=== PATIENT | male | born 1970 | race Caucasian/White ===

== ENCOUNTER 2017-02-11 21:31 | Emergency (ER) | payer OTHER ==
[2017-02-11 21:55] VITALS: BP 140/89; PULSE 80; RESP 16; TEMP 99; O2SAT 96
[2017-02-11] MEDS ORDERED: TDAP ADULT 0.5 ML INJ (BOOSTRIX) IM ONE (21:56)
--- NOTE | 2017-02-11 22:30 | EDPHY ---
H & P Time Seen by Provider: 02/11/17 21:41 HPI/ROS: CHIEF COMPLAINT: Left index finger laceration HISTORY OF PRESENT ILLNESS: 46-year-old male slicing a Lyme when he sliced the radial aspect of the left index finger at the tip. This occurred 2 o'clock in the afternoon. Patient has been unable to control the bleeding himself. No other injuries. He is not on any anticoagulants. Does not take aspirin. REVIEW OF SYSTEMS: Aside from elements discussed in the HPI, a comprehensive 10-point review of systems was reviewed and is negative. PAST MEDICAL HISTORY: Patient denies. SOCIAL HISTORY: 1 alcoholic beverage today. GENERAL APPEARANCE: Pleasant, no acute distress. FOCUSED EXAM OF left index finger: Patient has an avulsion type laceration to the radial aspect of the left index finger involving the distal nail and nail bed. There is brisk bleeding from the area of the nail that along the medial aspect. No suturable laceration. Germinal matrix is not injured. Smoking Status: Never smoked Constitutional: Initial Vital Signs Temperature (C) 37.2 C 02/11/17 21:51 Heart Rate 80 02/11/17 21:51 Respiratory Rate 16 02/11/17 21:51 Blood Pressure 140/89 H 02/11/17 21:51 O2 Sat (%) 96 02/11/17 21:51 O2 Delivery Mode Room Air Allergies/Adverse Reactions: ibuprofen Allergy (Mild, Verified 02/11/17 21:50) Other-Enter Comments Home Medications: Medication Instructions Recorded NK [No Known Home Meds] 02/11/17 MDM/Departure - MDM Medications Given: Discontinued Medications Diphtheria/Tetanus/Acell Pertussis (Boostrix) 0.5 ml IM .ONCE ONE Stop: 02/11/17 21:57 Last Admin: 02/11/17 22:40 Dose: Not Given ED Course/Re-evaluation: Surgicel was placed on a nail bed and a dressing was applied. Patient was reexamined after 15-20 minutes. When the Surgicel was removed very remains the area significant bleeding. At this point the nail bed and avulsion was dressed with Surgicel powder followed by Surgicel matrix. Tube gauze dressing was then applied. Bleeding was controlled with this dressing. Patient will leave the dressing in place for 24-48 hours. He is aware that when he removed the dressing especially when he removes the Surgicel matrix the area may begin to bleed again. He is comfortable with this plan. Please see the discharge instructions. Differential Diagnosis: Differential diagnosis for the patient's injury was considered including but not limited to contusion, abrasion, laceration, nail bed laceration, suturable laceration, avulsion, fracture. - Depart Disposition: Home, Routine, Self-Care Clinical Impression: Avulsion, finger tip Qualifiers: Encounter type: initial encounter Qualified Code(s): S61.209A - Unspecified open wound of unspecified finger without damage to nail, initial encounter Condition: Good Instructions: Skin Avulsion (ED) Additional Instructions: The bleeding of your finger tip which has been difficult to control is coming from an injury to the nail bed. Direct pressure as well as the use of Surgicel and other agents to help encourage clotting will be utilized to control the bleeding. Please keep the dressing in place for 24 hr. After that, you may redress the wound with a Band-Aid. The nail will continue to grow out from the base. Referrals: Alfonso Lopez DO [Primary Care Provider] - As per Instructions
== END 2017-02-11 23:02 | disposition home or self-care (01) ==
LOC: CED 21:31
DX: S61.201A Unspecified open wound of left index finger without damage to nail, initial encounter (principal); W45.8XXA Other foreign body or object entering through skin, initial encounter

== ENCOUNTER 2017-12-23 05:29 | Day surgery (SDC) | payer OTHER ==
[2017-12-23] MEDS ORDERED: ATROPINE SULFATE 1 MG/10 ML SYR IVP ONE (06:06)
[2017-12-23] MEDS ORDERED: fentaNYL 100 MCG/2 ML INJ IVP ONE (06:06)
[2017-12-23] MEDS ORDERED: MIDAZOLAM 2 MG/2 ML VIAL IVP ONE (06:06)
[2017-12-23] MEDS ORDERED: NS 500 ML IV ONE (06:06)
[2017-12-23 06:43] LABS: INR 1.47 (0.83-1.16)
--- NOTE | 2017-12-23 07:29 | PDHPUP ---
History & Physical Update H&P update statement: This history and physical update is based on an assessment of the patient which was completed after admission or registration (within 24 hours), but prior to the surgery/procedure. 47 year old male with PAF. He has been on Xarelto 20 mg daily since Nov 22, 2017 without interruption. Plan for DCCV. H&P update: H&P reviewed & patient examined, no change in patient's condition since H&P completed
--- NOTE | 2017-12-23 07:29 | PDANEPAE ---
ANE Past Medical History - Cardiovascular History Hx Hypertension: No Hx Arrhythmias: Yes Hx Chest Pain: No Hx Coronary Artery / Peripheral Vascular Disease: No Hx CHF / Valvular Disease: No Hx Palpitations: No Cardiovascular History Comment: Atrial flutter - Pulmonary History Hx COPD: No Hx Asthma/Reactive Airway Disease: No Hx Recent Upper Respiratory Infection: No Hx Oxygen in Use at Home: No Hx Sleep Apnea: No - Endocrine History Hx Diabetes: No Hypothyroid: No Hyperthyroid: No Obesity: no ANE Review of Systems Review of Systems: ANE Patient History - Allergies Allergies/Adverse Reactions: ibuprofen Allergy (Mild, Verified 02/11/17 21:50) Other-Enter Comments - Home Medications Home Medications: Lactobacillus Acidophilus [Probiotic] 12/23/17 [Last Taken 12/22/17] Metoprolol Tartrate 12.5 mg PO BID 12/23/17 [Last Taken 12/22/17] Omeprazole 20 mg PO DAILY 12/23/17 [Last Taken 12/22/17] Rivaroxaban [Xarelto] 20 mg PO DAILY 12/23/17 [Last Taken 12/22/17 17:30] - Smoking Hx Smoking Status: Never smoked ANE Labs/Vital Signs - Labs Result Diagrams: 12/23/17 06:20 - Vital Signs Height: 185.42 cm Weight: 90.718 kg ANE Physical Exam - Airway Neck exam: FROM Mallampati Score: Class 1 Mouth exam: normal dental/mouth exam - Pulmonary Pulmonary: no respiratory distress - Cardiovascular Cardiovascular: irregularly irregular - ASA Status ASA Status: II
[2017-12-23] MEDS ORDERED: PROPOFOL 200 MG/20 ML VIAL ONE (07:30)
[2017-12-23] MEDS ORDERED: SUCCINYLCHOLINE CHLORIDE 200 MG/10 ML SYR IVP ONE (07:30)
[2017-12-23] MEDS ORDERED: LIDOCAINE 1% 5 ML SDV ONE (07:30)
--- NOTE | 2017-12-23 07:49 | POSTANESTH ---
Post Anesthetic Evaluation Cardiovascular Status: Normal, Stable Respiratory Status: Normal, Stable Level of Consciousness/Mental Status: Can Participate in Eval Pain Control: Adequate, Prn Tx Ordered Nausea/Vomiting Control: Adequate, Prn Tx Ordered Complications Possibly Related to Anesthesia: None Noted
--- NOTE | 2017-12-23 18:15 | CPR ---
DATE OF PROCEDURE: 12/23/2017 PROCEDURE PERFORMED: Cardioversion. INDICATION FOR PROCEDURE: Atrial fibrillation. SUMMARY: The patient is a pleasant 47-year-old gentleman who according to his Fitbit went into atria l fibrillation on approximately October 27, 2017. He was seen at [facility] by SRIDHAR Pineda. He has been on Xarelto 20 mg once daily since November 22, 2017. He is also on metoprolol tartra te 12.5 mg p.o. b.i.d. He presented today for cardioversion. He states he has been compliant with X arelto and has not missed a single dose since starting last month. PROCEDURE: After consents were obtained for both anesthesia and direct current cardioversion, the sridhar flores was anesthetized with the assistance with Anesthesia with propofol. Once appropriate level of sedation was achieved, the patient underwent a single shock of 200 joules of biphasic synchronized en ergy with return to normal sinus rhythm. The patient tolerated the procedure well. There were no po stoperative complications. At the time of this dictation, he is awake, alert, appropriate, responding to questions. He remains in sinus rhythm at 67 beats per minute. PLAN: 1. Continue Xarelto 20 mg once daily. 2. Continue metoprolol tartrate 12.5 mg p.o. b.i.d. 3. Patient is scheduled to follow up with Alden Cuellar in approximately 2 weeks. /[id number]/MODL
--- NOTE | 2017-12-24 12:27 | CPEKG ---
Test Reason : OPEN Blood Pressure : / mmHG Vent. Rate : 074 BPM Atrial Rate : 109 BPM P-R Int : 146 ms QRS Dur : 095 ms QT Int : 387 ms P-R-T Axes : 000 008 -03 degrees QTc Int : 430 ms Atrial fibrillation Abnormal R-wave progression, early transition Borderline T abnormalities, inferior leads Confirmed by Los Harrison ([id number]) on 12/24/2017 12:26:26 PM Referred By: Confirmed By:Los Harrison
--- NOTE | 2017-12-24 12:28 | CPEKG ---
Test Reason : OPEN Blood Pressure : / mmHG Vent. Rate : 069 BPM Atrial Rate : 069 BPM P-R Int : 182 ms QRS Dur : 098 ms QT Int : 401 ms P-R-T Axes : 044 030 023 degrees QTc Int : 430 ms Sinus rhythm Abnormal R-wave progression, early transition Prior ECG with atrial fibrillation. Confirmed by Lso Harrison ([id number]) on 12/24/2017 12:27:58 PM Referred By: Confirmed By:Los Harrison
== END 2017-12-23 10:18 | disposition home or self-care (01) ==
LOC: FCATH 05:29
PROVIDERS: ATTEND Internal Medicine Cardiovascular Disease
PROC: 5A2204Z Restoration of Cardiac Rhythm, Single (ICD-10-PCS; principal; 2017-12-23)
DX: I48.0 Paroxysmal atrial fibrillation (principal); I77.810 Thoracic aortic ectasia; I10 Essential (primary) hypertension; Z79.01 Long term (current) use of anticoagulants; Z80.0 Family history of malignant neoplasm of digestive organs
CPT/HCPCS: J0330; J0461; J2704

== ENCOUNTER → 2018-03-27 | Outpatient (CLI) | payer OTHER | LOC: CIMAGING 12:06 | PROVIDERS: ATTEND Family Medicine | DX: N64.89 Other specified disorders of breast (principal) | CPT/HCPCS: 76641-PO ==